=== PATIENT | female | born 1965 | race Caucasian/White ===

== ENCOUNTER 2017-08-13 17:07 | Emergency (ER) | payer BC, OTHER ==
[2017-08-13 17:42] LABS: Hematocrit 38.9 % (37.0-47.0); Hemoglobin 13.4 gm/dL (12.5-16.0); Mean Cell Volume 82.2 fl (78-100); Mean Corpuscular Hemoglobin 28.3 pg (27-31); Mean Corpuscular Hgb Conc 34.4 g/dl (32-36); Mean Platelet Volume 9.1 fl (6.0-9.5); Neutrophil # 3.8 K/mm3 (1.3-6.0); Neutrophil % 54.9 % (42-75.0); Platelet Count 334 K/mm3 (150-450); Red Blood Count 4.73 M/mm3 (4.2-5.4); Red Cell Distribution Width 12.8 % (11.5-14.0)
[2017-08-13 17:59] LABS: ALT 31 U/L (19-67); AST 15 U/L (0-48); Albumin * 4.1 gm/dl (3.4-5.0); Alkaline Phosphatase * 67 U/L (50-170); Anion Gap 14.8 mmol/L (6.8-13.8); BUN/Creatinine Ratio 33.3 (9.0-21.6); Bilirubin, Total 0.2 mg/dL (0.0-1.1); Blood Urea Nitrogen 20 mg/dL (3-23); Ca. Corrected For Albumin 9.1 mg/dL (8.4-10.2); Calcium * 9.5 mg/dL (7.9-10.9); Carbon Dioxide 25.7 mmol/L (24-32.6); Chloride 101 mmol/L (97-106); Glucose * 122 mg/dL (70-110); Magnesium 2.2 mg/dL (1.2-2.8); Potassium 3.5 mmol/L (3.4-4.6); Sodium 138 mmol/L (132-142); Total Protein 8.1 gm/dL (6.2-8.2); Troponin I Less than 0.017 ng/ml (0.00-0.10)
--- NOTE | 2017-08-13 18:18 | ERNOTE ---
Chest Pain/Cardiac HPI Chief Complaint: Palpitations Time Seen by Provider: 08/13/17 17:26 Source: patient Exam Limitations: no limitations Immunizations: IMMUNIZATION HX Immunizations Up to Date Yes History of Influenza Vaccine Yes Hx Pneumococcal Vaccination No Allergies/Adverse Reactions: Allergies Beta-Blockers (Beta-Adrenergic Bloc Allergy (Mild, Verified 08/13/17 17:36) codeine Allergy (Mild, Verified 08/13/17 17:36) Penicillins Allergy (Mild, Verified 08/13/17 17:36) Home Medications: HOME MEDICATIONS Atorvastatin Calcium [Lipitor] 10 mg PO DAILY 08/13/17 [Last Taken Unknown] Biotin 10,000 mcg PO DAILY 08/13/17 [Last Taken Unknown] Bupropion HCl [Wellbutrin Sr] 150 mg PO DAILY 08/13/17 [Last Taken Unknown] Cholecalciferol (Vitamin D3) [Vitamin D3] 5,000 unit PO DAILY 08/13/17 [Last Taken Unknown] Diltiazem HCl [Diltiazem 24Hr Cd] 180 mg PO DAILY #30 cap.er.24h 08/13/17 [Last Taken Unknown] Diltiazem HCl [Diltiazem 24Hr ER] 120 mg PO DAILY 08/13/17 [Last Taken Unknown] Fluticasone Propionate [Flonase] 1 spray NS DAILY 08/13/17 [Last Taken Unknown] Loratadine [Claritin] 10 mg PO DAILY 08/13/17 [Last Taken Unknown] Omeprazole [Prilosec] 20 mg PO DAILY 08/13/17 [Last Taken Unknown] metFORMIN HCL [Metformin HCl] 500 mg PO HS 08/13/17 [Last Taken Unknown] Narrative: Patient presents with episodes of which she states is a rapid heart rate. Patient was started on Cardizem by Dr. Bah and I suspected to simply needs to be adjusted upward somewhat. Timing: intermittent Severity/Quality: mild Chest Pain Radiation: no radiation Activities at Onset: none Modifying Factors - Improves: Present: nothing Modifying Factors - Worsens: Present: nothing Associated Symptoms: Present: denies symptoms Review of Systems - Review of Systems Constitutional: Present: See HPI EYE: Present: no symptoms reported ENT: Present: no symptoms reported Respiratory: Present: no symptoms reported Cardiology: Present: See HPI Gastrointestinal/Abdominal: Present: no symptoms reported Genitourinary: Present: no symptoms reported Musculoskeletal: Present: no symptoms reported Skin: Present: no symptoms reported Neurological: Present: no symptoms reported Endocrine: Present: no symptoms reported Hematologic/Lymphatic: Present: no symptoms reported Psych: Present: no symptoms reported - Patient's Past Medical History Patient History - Cardiac/Respiratory: Bronchitis, CHF, Hypertension, Hyperlipidemia Patient History - Cancer: No Hx of Cancer Patient History - Surgical Procedures: Cholecystectomy, T & A Patient History - Other: None - Social History Living Situations: home Abuse History: No History of abuse Psych History: No pertinent hx Smoking Status: Current some day smoker Have you smoked in the past 12 months: Yes Do you dip or chew tobacco: No Patient requests Smoking Cessation Consult: No Initiate information on Smoking Cessation: No Alcohol Use: none Drug Use: none - Immunizations Immunizations Up to Date: Yes Hx Pneumococcal Vaccination: No History of Influenza Vaccine: Yes Physical Exam - Physical Exam General Appearance: Present: wd/wn, alert, no apparent distress Eye Exam: Normal inspection: bilateral, PERRL: bilateral Ears, Nose, Throat: Present: normal ENT inspection, H, normal pharynx Neck: Present: normal inspection, nontender Respiratory: Present: no respiratory distress, normal breath sounds, no accessory muscle use, chest nontender, lungs clear Cardiovascular/Chest: Present: no murmur, normal peripheral pulses, tachycardia Gastrointestinal/Abdominal: Present: normal bowel sounds, nontender, nondistended, soft, no organomegaly Rectal Exam: Present: deferred Back Exam: Present: normal inspection, normal range of motion Extremity Exam: Present: normal inspection, non-tender, no edema, normal range of motion Neurological Exam: Present: alert, oriented, normal mood/affect Skin Exam: Present: normal color, warm/dry Lymphatic Exam: Present: no adenopathy ED Progress - Results and Orders Patient's Lab Results:: I have reviewed the patient's lab results. - Vital Signs Patient's Vital Signs:: I have reviewed the patient's vital signs. Vital Signs: Vital Signs 08/13/17 17:15 Temperature 36.9 C Pulse Rate 105 H Respiratory 18 Rate Blood Pressure 176/107 O2 Sat by Pulse 99 Oximetry - EKG EKG: other - sinus tachycardia with PVCs EKG read: Interp. by me - Progress/Reassessment Chief Complaint: Palpitations Plan - Plan Plan: I'm going to take her Cardizem CD from 120 mg to 180 mg a day. Patient states that she drank a Pepsi today and we had a good discussion regarding caffeine and palpitations. Patient agrees to refrain from coffee or tea and chocolate and she will call Dr. Bah for appointment Departure Clinical Impression: Palpitations - Departure Disposition: Home self-care Condition: Good Instructions: Sinus Tachycardia, Palpitations, [id number] Additional Instructions: Call your family doctor for an appointment, change her Cardizem to the 180 mg daily and stop taking the 120 mg Cardizem Referrals: Live Bah MD [Primary Care Provider] - Prescriptions: Diltiazem HCl [Diltiazem 24Hr Cd] 180 mg PO DAILY #30 cap.er.24h
[2017-08-13] MEDS ORDERED: DILTIAZEM HCL 180 MG CAP.SR.24H PO ONE (18:30)
[2017-08-13 18:46] VITALS: BP 159/97
== END 2017-08-13 18:55 | disposition home or self-care (01) ==
LOC: ER 17:07
DX: R00.2 Palpitations (principal); E78.5 Hyperlipidemia, unspecified; I10 Essential (primary) hypertension; I50.9 Heart failure, unspecified; F17.200 Nicotine dependence, unspecified, uncomplicated